=== PATIENT | female | born 1955 | race Caucasian/White ===

== ENCOUNTER 2016-09-25 11:09 | Emergency (ER) | payer OTHER | END 2016-09-25 12:00 | disposition home or self-care (01) | LOC: ER1 11:09 | DX: S83.92XA Sprain of unspecified site of left knee, initial encounter (principal); Z90.710 Acquired absence of both cervix and uterus; X58.XXXA Exposure to other specified factors, initial encounter | CPT/HCPCS: 99283 ==

== ENCOUNTER → 2016-11-01 | Outpatient (CLI) | payer OTHER ==
[~2016-11-01] MED LIST: HUMIBID LA TAB600 MG PO; IPRAT-ALBUT 0.5-3 ML INH; LEVAQUIN750 MG PO; METFORMIN HCL500 MG PO; MUCINEX600 MG PO; PREDNISONE20 MG PO; PROTONIX40 MG PO; TESSALON PERLE100 MG PO
[2016-11-01 15:08] LABS: HEMOGLOBIN 15.1 gm/dl (12.3-15.3); RED BLOOD COUNT 5.12 M/UL (4.00-5.10); WHITE BLOOD COUNT 8.3 K/UL (4.5-11.0)
[2016-11-01 15:28] LABS: BUN/CREATININE RATIO 19 (0-10)
== END ==
LOC: LAB 14:24
PROVIDERS: Orthopaedic Surgery
DX: Z01.818 Encounter for other preprocedural examination (principal); Z91.030 Bee allergy status
CPT/HCPCS: 36415; 71020; 80053; 85027

== ENCOUNTER 2017-02-20 17:31 | Inpatient (IN) | payer OTHER ==
[~2017-02-20] VITALS: Ht 170.2 cm; Wt 83.9 kg
[2017-02-20 18:56] LABS: HEMOGLOBIN 13.6 gm/dl (12.3-15.3); RED BLOOD COUNT 4.56 M/UL (4.00-5.10); WHITE BLOOD COUNT 14.1 K/UL (4.5-11.0)
[2017-02-20 19:15] LABS: BUN/CREATININE RATIO 18 (0-10)
[2017-02-21 06:22] LABS: HEMOGLOBIN 13.9 gm/dl (12.3-15.3); RED BLOOD COUNT 4.67 M/UL (4.00-5.10)
[2017-02-21 06:23] LABS: WHITE BLOOD COUNT 10.5 K/UL (4.5-11.0)
[2017-02-21 06:38] LABS: BUN/CREATININE RATIO 23 (0-10)
[2017-02-24] MEDS ORDERED: TESSALON PERLE100 MG PO ×2 (15:25→15:31)
[2017-02-24] MEDS ORDERED: HUMIBID LA TAB600 MG PO (15:26)
[2017-02-24] MEDS ORDERED: LEVAQUIN750 MG PO (15:28)
[2017-02-24] MEDS ORDERED: PROTONIX40 MG PO (15:28)
[2017-02-24] MEDS ORDERED: PREDNISONE20 MG PO (15:28)
[2017-02-24] MEDS ORDERED: METFORMIN HCL500 MG PO (15:29)
[2017-02-24] MEDS ORDERED: IPRAT-ALBUT 0.5-3 ML INH (15:31)
[2017-02-24] MEDS ORDERED: MUCINEX600 MG PO (15:35)
== END 2017-02-24 16:38 | disposition home or self-care (01) | DRG 189 ==
LOC: ER1 17:31 → ZEROF 21:37 → MED SURG 4 21:37
PROVIDERS: Emergency Medicine; ADMIT Hospitalist
DX: J96.01 Acute respiratory failure with hypoxia (principal); J44.1 Chronic obstructive pulmonary disease with (acute) exacerbation; J44.0 Chronic obstructive pulmonary disease with (acute) lower respiratory infection; J20.9 Acute bronchitis, unspecified; R73.9 Hyperglycemia, unspecified; Z90.710 Acquired absence of both cervix and uterus; Z79.899 Other long term (current) drug therapy; Z87.891 Personal history of nicotine dependence
CPT/HCPCS: ECHO; 36415; 36600; 71010; 80053; 82550; 82553; 82803; 82962; 83036; 83874; 84436; 84443; 84480; 84484; 85025; 85027; 85379; 87040; 90732; 93005; 93306; 94640; 94664; 96365; 96375; 99291; C9113; J1650; J1940; J1956; J2405; J2920; J2930; J7030; J7050; Q9963

== ENCOUNTER → 2020-11-19 | Outpatient (CLI) | payer OTHER ==
[~2020-11-19] MED LIST changes: +CEFUROXIME500 MG PO; +ELIQUIS2.5 MG PO; +GLUCOPHAGE850 MG PO; +MEDROL4 MG PO; +PERCOCET 10-321 EACH PO
[2020-11-19 08:34] LABS: HEMOGLOBIN 15.1 gm/dl (12.3-15.3); RED BLOOD COUNT 5.08 M/UL (4.00-5.10); WHITE BLOOD COUNT 8.4 K/UL (4.5-11.0)
[2020-11-19 08:58] LABS: BUN/CREATININE RATIO 26 (0-10)
== END ==
LOC: LAB 07:54
PROVIDERS: Nurse Practitioner Family
DX: E78.5 Hyperlipidemia, unspecified (principal); E11.65 Type 2 diabetes mellitus with hyperglycemia; E53.8 Deficiency of other specified B group vitamins; E55.9 Vitamin D deficiency, unspecified
CPT/HCPCS: 36415; 80053; 80061; 82570; 82607; 83036; 84156; 84439; 84443; 85025

== ENCOUNTER → 2021-05-18 | Outpatient (CLI) | payer OTHER ==
[2021-05-18 07:56] LABS: HEMOGLOBIN 14.5 gm/dl (12.3-15.3); RED BLOOD COUNT 5.03 M/UL (4.00-5.10); WHITE BLOOD COUNT 7.5 K/UL (4.5-11.0)
[2021-05-18 08:26] LABS: BUN/CREATININE RATIO 25 (0-10)
== END ==
LOC: LAB 06:46
PROVIDERS: Nurse Practitioner Family
DX: E78.5 Hyperlipidemia, unspecified (principal); E11.65 Type 2 diabetes mellitus with hyperglycemia; E53.8 Deficiency of other specified B group vitamins; E55.9 Vitamin D deficiency, unspecified
CPT/HCPCS: 36415; 80053; 80061; 82570; 82607; 83036; 84156; 84439; 84443; 85025

== ENCOUNTER → 2021-11-03 | Outpatient (CLI) | payer MEDICARE, OTHER ==
[2021-11-03 10:33] LABS: HEMOGLOBIN 15.8 gm/dl (12.3-15.3); RED BLOOD COUNT 5.3 M/UL (4.00-5.10); WHITE BLOOD COUNT 8.7 K/UL (4.5-11.0)
[2021-11-03 10:48] LABS: BUN/CREATININE RATIO 21 (0-10)
== END ==
LOC: LAB 09:18
PROVIDERS: Nurse Practitioner Family
DX: E78.5 Hyperlipidemia, unspecified (principal); E11.9 Type 2 diabetes mellitus without complications; E53.8 Deficiency of other specified B group vitamins; E55.9 Vitamin D deficiency, unspecified
CPT/HCPCS: 36415; 80053; 80061; 82570; 82607; 83036; 84156; 84439; 84443; 85025